=== PATIENT | male | born 1995 | race Caucasian/White ===

== ENCOUNTER 2017-01-09 05:59 | Emergency (ER) | payer OTHER ==
[~2017-01-09] VITALS: Ht 177.8 cm; Wt 70.3 kg
[2017-01-09 06:12] VITALS: BP 116/68
[2017-01-09] MEDS ORDERED: IBUPROFEN 800 MG TAB As Ordered ONE (06:41)
[2017-01-09] MEDS ORDERED: IBUP80TA PO (06:42)
[2017-01-09] MEDS ORDERED: IBUPROFEN 800 MG TAB PO ONE (06:45)
--- NOTE | 2017-01-10 08:43 | ECGEPIP ---
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
== END 2017-01-09 07:17 | disposition home or self-care (01) ==
LOC: M ED 06:59
DX: M94.0 Chondrocostal junction syndrome [Tietze] (principal); R01.1 Cardiac murmur, unspecified

== ENCOUNTER 2017-02-18 06:32 | Emergency (ER) | payer OTHER ==
[~2017-02-18] VITALS: Ht 177.8 cm; Wt 72.6 kg
[~2017-02-18 06:32] MED LIST: IBUP80TA PO
[2017-02-18] MEDS ORDERED: ACETAMINOPH W/CODEINE #3 TAB UD PO ONE (07:00)
[2017-02-18 07:29] LABS: BASO % 0.4 % (0.0-1.0); EOS # 0.1 K/mm3 (0.0-0.50); EOS % 2.9 % (0.0-3.0); LARGE UNSTAINED CELL # 0.1 K/mm3 (0.0-0.4); LARGE UNSTAINED CELL % 2.8 % (0.0-4.0); LYMPH # 1.6 K/mm3 (1.5-6.5); LYMPH % 31.2 % (24.0-44.0); MEAN CORPUSCULAR HEMOGLOBIN 29.9 pg (27.0-33.0); MEAN CORPUSCULAR HGB CONC 34.4 g/dl (32.0-36.5); MONO # 0.4 K/mm3 (0.0-0.8); MONO % 8.7 % (0.0-5.0); NEUTROPHILS # 2.6 K/mm3 (1.8-7.7); NEUTROPHILS % 54.1 % (36.0-66.0); PLATELET COUNT, AUTOMATED 197 k/mm3 (150-450); RED CELL DISTRIBUTION WIDTH 12.7 % (11.5-14.5); WHITE BLOOD COUNT 4.8 K/mm3 (4.0-10.0)
[2017-02-18 07:43] LABS: ANION GAP 7 MEQ/L (8-16); BLOOD UREA NITROGEN 18 MG/DL (7-18); CALCIUM LEVEL 8.8 MG/DL (8.5-10.1); CARBON DIOXIDE LEVEL 27 MEQ/L (21-32); CHLORIDE LEVEL 107 MEQ/L (98-107); CREATININE FOR GFR 0.98 MG/DL (0.70-1.30); GLOMERULAR FILTRATION RATE > 60.0 (>60); GLUCOSE, FASTING 89 MG/DL (70-105); POTASSIUM SERUM 3.6 MEQ/L (3.5-5.1); SODIUM LEVEL 141 MEQ/L (136-145)
--- NOTE | 2017-02-18 08:13 | REP ---
Clinical: Chest pain . Comparison: None . Technique: PA and lateral. Findings: The mediastinum and cardiac silhouette are normal. The lung perry are clear and without acute consolidation, effusion, or pneumothorax. The skeletal structures are intact and normal. Impression: 1. No acute cardiopulmonary process. Signed by iVet Silva MD 02/18/2017 08:05 A
[2017-02-18] MEDS ORDERED: KETO10TAB PO (08:38)
[2017-02-18 09:04] VITALS: BP 106/60
--- NOTE | 2017-02-19 08:12 | ECGEPIP ---
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
== END 2017-02-18 09:00 | disposition home or self-care (01) ==
LOC: M ED 07:44
DX: M94.0 Chondrocostal junction syndrome [Tietze] (principal); R07.89 Other chest pain; R01.1 Cardiac murmur, unspecified; I44.7 Left bundle-branch block, unspecified